=== PATIENT | male | born 1950 | race Asian ===

== ENCOUNTER 2018-04-18 09:51 | Day surgery (SDC) | payer MEDICARE ==
--- NOTE | 2018-04-15 15:05 | HP ---
PREOPERATIVE HISTORY AND PHYSICAL: DATE OF ADMISSION/SURGERY: 04/18/18 [facility] DATE OF OFFICE VISIT: 04/14/18 ATTENDING SURGEON: Dr. Pawan Daley.* (DICTATED BY MARTINE LAKHANI) PROCEDURE: Left shoulder arthroscopic rotator cuff repair, decompression, debridement, subpectoral biceps tenodesis, and excision of distal clavicle. CHIEF COMPLAINT: Left shoulder. HISTORY OF PRESENT ILLNESS: Yovany is a 67-year-old male, who presents to the clinic for left shoulder pain due to a rotator cuff tear, biceps tendinitis and AC joint arthritis. He has failed conservative measures and therefore agreed to undergo a left shoulder arthroscopic rotator cuff repair, decompression, debridement, subpectoral biceps tenodesis, and excision of distal clavicle with Dr. Daley on 04/18/18. PAST MEDICAL HISTORY: Hypertension and heart stent placement. PAST SURGICAL HISTORY: Surgical heart stent placement and right shoulder surgery. The patient denies prior complications with anesthesia. MEDICATIONS: 1. Diclofenac 75 mg 1 by mouth twice a day as needed for pain. 2. Zetia 10 mg 1 by mouth every day. 3. Crestor 40 mg 1 by mouth daily. 4. Lisinopril 20 mg one-half by mouth daily. 5. Aspirin 81 mg 1 tab daily. 6. Rosuvastatin 40 mg 1 daily. ALLERGIES: To CODEINE. FAMILY HISTORY: Unknown. SOCIAL HISTORY: He is a former smoker, quit 4 years ago. He reports occasional alcohol consumption. He denies illegal drug use. REVIEW OF SYSTEMS: A 14-point review of systems was reviewed with the patient. Positive for current complaint, otherwise negative. Denies fever, chills, chest pain, shortness of breath, history of DVT or PE, history of bleeding disorder. PHYSICAL EXAMINATION GENERAL: A 67-year-old, well-developed, well-nourished male, in no acute distress. VITAL SIGNS: Height 68, weight 171, pulse 84, respiratory rate 16, temperature 96.8, O2 sat 97%, BMI 26.0. HEENT: Normocephalic, atraumatic. PERRLA. Throat clear. NECK: Supple. PULMONARY: Lungs are clear to auscultation bilaterally. No wheezing, rhonchi, or rales. CARDIO: Regular rate and rhythm. S1, S2. No murmurs, gallops, or rubs. No edema. ABDOMEN: Positive bowel sounds. Soft, nontender. NEURO: Alert and oriented x3. Cranial nerves grossly intact. MUSCULOSKELETAL: Left upper extremity: Skin is intact. No warmth or erythema. Forward flexion to 150, abduction to 150, external rotation to 70, internal rotation to the thoracic spine. Tenderness to palpation of the AC joint and proximal biceps tendon. Full range of motion of the elbow, wrist, and hand. +2 radial pulse. Sensation intact to light touch distally. Pain and weakness to rotator cuff testing. Positive impingement, Speed, Ho- Sudhir, [place]. DIAGNOSTIC STUDIES: MRI revealed full-thickness tear of the supraspinatus and infraspinatus tendon with 3 cm of retraction, no full-thickness tear of the subscapularis, with biceps tendinopathy and AC joint arthritis. IMPRESSION: Left shoulder rotator cuff tear, acromioclavicular joint arthritis , and biceps tendinitis. PLAN: The patient is scheduled to undergo a left shoulder arthroscopic rotator cuff repair, decompression, debridement, subpectoral biceps tenodesis, and excision of distal clavicle with Dr. Daley on 04/18/18. He will follow up 10 to 14 days postop for followup and suture removal. Percocet will be used for postop pain management and Keflex for antibiotic prophylaxis. MARTINE LAKHANI [id number]/[facility] #: [id number] [facility]ITAL[facility]
[~2018-04-18 09:51] MED LIST: Buffered Lidocaine 1% SYRIN* 1 ML/SYRINGE INTRADERM ONE; Dexamethasone TAB* 4 MG PO ONE; DiMENhydriNATE IV* 50 MG/ML VIAL IV PUSH PRN; Famotidine IV* 10 MG/ML 2 ML (20 mg) IV ONE; Lactated Ringers 1000 ML Bag* 1,000 ML IV SCH; Morphine VIAL* 4 MG/ML VIAL (1 ml vial) IV PRN; Naloxone* 0.4 MG/ML 1 ML VIAL IV PRN; Ondansetron INJ* 2 MG/ML VIAL ONE; PROCHLORPERAZINE INJ 5 MG/ML 2 ML VIAL IV PRN; fentaNYL* 50 MCG/ML 2 ML VIAL (100 MCG VIAL) IV PRN; oxyCODONE/Acetamin 5/325 MG* TAB PO PRN
[2018-04-18] MEDS ORDERED: Ondansetron ODT TAB* 4 MG ONE (10:07)
[2018-04-18] MEDS ORDERED: ceFAZolin 2 GM PREMIX in ORs 2 GM/50 ML BAG IVPB ONE (10:07)
[2018-04-18] MEDS ORDERED: Dexamethasone TAB* 4 MG ONE (10:07)
[2018-04-18] MEDS ORDERED: Famotidine IV* 10 MG/ML 2 ML (20 mg) ONE (10:08)
[2018-04-18] MEDS ORDERED: fentaNYL* 50 MCG/ML 2 ML VIAL (100 MCG VIAL) ONE ×2 (13:10→14:50)
[2018-04-18] MEDS ORDERED: Midazolam* 1 MG/ML 5 ML VIAL (5 MG) ONE (13:10)
[2018-04-18] MEDS ORDERED: KETAMINE HCL* 50 MG/ML 10 ML VIAL ONE (13:10)
[2018-04-18] MEDS ORDERED: Lidocaine 2% PF * 5 ML VIAL ONE (14:47)
[2018-04-18] MEDS ORDERED: Phenylephrine INJ* 10 MG/ML 1 ML VIAL (10 MG) ONE (14:47)
[2018-04-18] MEDS ORDERED: Ketorolac INJ* 30 MG/ML 1 ML VIAL ONE (14:47)
[2018-04-18] MEDS ORDERED: PROCHLORPERAZINE INJ 5 MG/ML 2 ML VIAL ONE (14:47)
[2018-04-18] MEDS ORDERED: Propofol* 10 MG/ML 20 ML BTL ONE (14:47)
[2018-04-18] MEDS ORDERED: Metoprolol Tartrate IV* 1 MG/ML 5 ML VIAL ONE (14:47)
[2018-04-18] MEDS ORDERED: Morphine VIAL* 10 MG/ML 1 ML VIAL ONE (15:51)
[2018-04-18 17:00] VITALS: BP 137/82
--- NOTE | 2018-04-19 02:19 | OP ---
DATE OF OPERATION: 04/18/18 [facility] DATE OF : 48 SURGEON: Pawan Daley MD NEON PUMPER: MARTINE Dyer. An shipping assistant was needed for the entirety of the case to help with position and retraction and was utilized throughout all portions of the case. SECOND NEON PUMPER: JANN Adame ANESTHESIOLOGIST: Dr. Brown. ANESTHESIA: General anesthesia with interscalene block. PRE-OP DIAGNOSES: Left shoulder acute massive tear of the supra and infraspinatus tendon plus bicipital tendinosis, tendinitis, and acromioclavicular joint arthritis. POST-OP DIAGNOSES: Left shoulder acute massive tear of the supra and infraspinatus tendon plus bicipital tendinosis, tendonitis, and acromioclavicular joint arthritis. OPERATIVE PROCEDURE:Left shoulder arthroscopy 1. Extensive glenohumeral debridement. 2. Arthroscopic biceps tenodesis. 3. Decompression with acromioplasty. 4. Distal clavicle excision arthroscopically. 5. Rotator cuff repair of the supra and infraspinatus tendon for a large/ massive tear. INDICATIONS: Yovany Khan is a 67-year-old male, who has had left shoulder pain after he fell on 02/12/18. He has an exquisite pain and difficulty with range of motion. We did an MRI, demonstrated a full-thickness retracted tear. He is very active and we discussed the risks and benefits of surgical versus nonoperative treatment. He has elected to proceed with surgical treatment. Risks and benefits were discussed at length, included but not limited to, bleeding; infection; damage to nerves, vessels, surrounding structures; wound nonhealing; persistent pain; need for further surgery; scarring; stiffness; incomplete relief of symptoms; risk of anesthesia. COMPLICATIONS: None. ESTIMATED BLOOD LOSS: Minimal. DESCRIPTION OF PROCEDURE: The patient was greeted in the preoperative area by the attending surgeon. Correct extremity was marked. Consent was confirmed. The patient underwent interscalene nerve block by the anesthesiologist after which he was brought back to the operating suite. He was placed in the supine position on the operating room table. He then underwent general anesthesia and intubation after which he was placed in the lateral decubitus position. All bony prominences were padded. He was secured with a peg board and axillary roll. The left arm was draped unsterile with 10 pounds of traction. The shoulder was then prepped and draped in the usual sterile fashion beginning with chlorhexidine soap, scrub, and alcohol wipe, and a final prep with ChloraPrep. After appropriate surgical pause indicating site, side, procedure, administration of antibiotics, the standard posterolateral portal was made sharply with an 11 blade. Scope was introduced into the joint. The joint was examined. There were grade 0 changes of the glenohumeral joint, but there was significant synovitis that was present. There was evidence of full-thickness traumatic tear. The biceps was torn at the superior labrum, but the subscap was intact. Again, there was significant synovitis present. The anterior, posterior, and superior labrum were then debrided back using fabio after an anterior portal was made. After the debridement was completed, attention was directed to the subacromial space. With the scope in the subacromial space, the lateral portal was made in an outside- in fashion. Shaver was used to debride back the abundant bursa. The undersurface of the acromion was then skeletonized using electrocautery device. CA ligament was peeled back. A small acromioplasty was then done to remove the anterior, inferior acromial spurs after which the cuff was examined. There was a full-thickness L- shaped type of traumatic tear. The stump was debrided back most anteriorly. The greater tuberosity was then skeletonized and then gently rasped using a rasp, which was a 4-0 oval bur, to gently decorticate the tissues and allow for bony bleeding bed. Cuff tissue was then carefully mobilized. It was first had to be released from adhesions beginning with a blunt probe and then an electrocautery device. The cuff tissue was then carefully mobilized. The tension suture was then placed to help with traction. It was determined that, like I said, this was a very large L- shaped tear involving the supra and infraspinatus tendon. At this point, there was a remnant in the supraspinatus tendon that was still present next to the interval. Decision was made to try a [id number] repair. After the cuff tissue was mobilized, attention was directed to the biceps. The biceps was identified in the groove and through a separate stab incision a 4.75 Helicoil was placed with excellent purchase. The patient had very good bone. The sutures were then passed using k,kka suture passing device with the biceps to make sure it stayed in the appropriate amount of tension. This passed the tendon in a locking whipstitch done arthroscopically. After this was done and then tied down, using arthroscopic knot-tying technique, the biceps was tenotomized proximal to that and the stump was debrided back. Attention was then directed to the rotator cuff repair. Stay suture had been placed with a #2 Ethibond suture and used retraction. At this point, a small [id number]-dawq repair to repair the large L-shaped tear to a small supraspinatus remnant was placed at the base of the split in a simple configuration. This was tied down, this helped to gently bring the cuff closer to the insertion. The stay suture with a traction suture was also used to help facilitate passes. Because the biceps anchor was double loaded, sutures were then passed very anteriorly to allow for capture in the anterior most aspect of the supraspinatus tendon. This was passed through a horizontal mattress configuration and then 2 separate 4.75 Helicoils were also placed through separate stab incisions. The bone quality again was very good. Sutures were then passed in a horizontal mattress configuration. Of course, the placement of these were dependent upon the traction suture to make sure this was placed appropriately. A second lateral portal had to be made for the most optimal passage of suture. Once the sutures were all passed, they were then tied down beginning anteriorly. This helped to reapproximate the cuff to greater tuberosity and the knots were tied. The cuff had been completely reapproximated to the tuberosity. At this point, decision was made to do a double-row repair. Therefore, the sutures in the most anterior aspect of each knot including the biceps were then passed through a Multi- Fix for anterolateral row fixation, placed with excellent purchase. The bone quality was softer laterally. The remaining strands were then passed with the exception of the biceps strand. The remaining 5 strands were then passed through a Multi-Fix for a posterolateral row fixation. This reapproximated the cuff and compressed the footprint. At this point, final images were obtained. Attention was directed to the distal clavicle excision. The row was brought through the anterior portal and there was very stenotic AC joint with an anterior inferior spur. This was debrided back using 4-0 oval bur and then the distal 8 mm of the clavicle was then released including ossified meniscal remnant, was debrided back. All loose debris was removed and final images were obtained. The wounds were then copiously irrigated with sterile saline. Portals were closed with 3-0 nylon in an interrupted fashion. Sterile dressings were applied and a Cryo/Cuff and UltraSling were applied. He was awoken from anesthesia and transferred to PACU in stable condition. POSTOPERATIVE PLAN: He will be discharged on pain medications. DVT prophylaxis considered but deferred due to no previous personal or family history. I will see the patient back in 10 to 14 days. [id number]/[facility] #: [id number] DORA
== END 2018-04-18 17:19 | disposition home or self-care (01) ==
LOC: OREAST 09:51
PROVIDERS: ATTEND Orthopaedic Surgery
DX: S46.012A Strain of muscle(s) and tendon(s) of the rotator cuff of left shoulder, initial encounter (principal); M75.22 Bicipital tendinitis, left shoulder; M19.012 Primary osteoarthritis, left shoulder; I10 Essential (primary) hypertension; Z95.5 Presence of coronary angioplasty implant and graft; Z87.891 Personal history of nicotine dependence; W19.XXXA Unspecified fall, initial encounter; Y92.9 Unspecified place or not applicable; G89.18 Other acute postprocedural pain
CPT/HCPCS: A9270-GY; C1713; J0690; J0780; J1885; J2250; J2270; J2704; J3010; J3490; J8540

== ENCOUNTER 2018-12-20 17:08 | Emergency (ER) | payer MEDICARE ==
[2018-12-20 17:54] VITALS: BP 149/95
--- NOTE | 2018-12-20 18:42 | UC ---
Respiratory Complaint HPI - HPI Summary HPI Summary: Patient is a 67yo male presenting with pain in his left side/ribs x2 weeks. States the pain has worsened over the past few days. States sitting still make the pain better. He was recently treated by his PCP for bronchitis and states those symptoms are slowly resolving but he still has a productive cough. Denies fever and chills. Denies SOB and wheezing. Denies n/v. States ibuprofen and tylenol do not help his pain. Rates the pain 10/10 sharp pain that "makes him want to cry." Patient is concerned for pneumonia and requests something other than ibuprofen for pain. - History of Current Complaint Chief Complaint: UCRespiratory Stated Complaint: RIB PAIN Hx Obtained From: Patient Onset/Duration: Gradual Onset, Lasting Weeks, Worse Since - 3 days ago Severity Initially: Severe Severity Currently: Severe Pain Intensity: 8 Pain Scale Used: 0-10 Numeric Character: Cough: Productive - Allergies/Home Medications Allergies/Adverse Reactions: Allergies Allergy/AdvReac Type Severity Reaction Status Date / Time codeine AdvReac Intermediate Vomiting Verified 12/20/18 17:54 PMH/Surg Hx/FS Hx/Imm Hx Cardiovascular History: Hypertension Other History Of: Anticoagulant Therapy - Surgical History Surgical History: Yes Surgery Procedure, Year, and Place: Appendectomy. Right rotator cuff repair. Cardiac stent placement - 5-6 years ago and then January 2016. cataract bilat - Family History Known Family History: Positive: Non-Contributory Negative: Cardiac Disease, Diabetes Family History: Denies FHx of CVA - Social History Alcohol Use: Occasionally Alcohol Amount: 1-2 glasses of wine per night Substance Use Type: None Smoking Status (MU): Former Smoker Type: Cigarettes Amount Used/How Often: 2 ppd Length of Time of Smoking/Using Tobacco: 51 Have You Smoked in the Last Year: Yes When Did the Patient Quit Smoking/Using Tobacco: 2014 Household Exposure Type: Cigarettes - Immunization History Most Recent Influenza Vaccination: Fall 2015 Most Recent Tetanus Shot: 5-6 years ago Most Recent Pneumonia Vaccination: [facility] Review of Systems All Other Systems Reviewed And Are Negative: Yes Constitutional: Positive: Negative. Negative: Fever, Chills, Fatigue Eyes: Positive: Negative ENT: Negative: Sore Throat, Ear Ache, Nasal Discharge, Sinus Congestion, Sinus Pain/Tenderness Respiratory: Positive: Cough. Negative: Shortness Of Breath Cardiovascular: Positive: Negative Gastrointestinal: Positive: Negative Musculoskeletal: Positive: Other: - pain in left ribs Neurological: Negative: Headache Physical Exam Triage Information Reviewed: Yes Appearance: Well-Appearing, No Pain Distress, Well-Nourished Vital Signs: Initial Vital Signs Temp 97.9 F 12/20/18 17:50 Pulse 96 12/20/18 17:50 Resp 18 12/20/18 17:50 BP 149/95 12/20/18 17:50 Pulse Ox 97 12/20/18 17:50 Vital Signs Reviewed: Yes Eyes: Positive: Conjunctiva Clear ENT: Positive: Hearing grossly normal Neck exam: Normal Neck: Positive: Supple, Nontender Respiratory Exam: Normal Respiratory: Positive: Lungs clear, Normal breath sounds, No respiratory distress, No accessory muscle use. Negative: Crackles, Rhonchi, Stridor, Wheezing, Plerual rub Cardiovascular Exam: Normal Cardiovascular: Positive: RRR. Negative: Tachycardia Musculoskeletal: Positive: No Edema, Other: - tenderness to palpation of left lateral lower ribs Neurological: Positive: Alert, Muscle Tone Normal Psychological: Positive: Age Appropriate Behavior - no ecchymosis Skin: Positive: Other - no ecchymosis noted Diagnostics - Radiology chest xray Radiology Interpretation Completed By: ED Physician Summary of Radiographic Findings: no fracture. no pneumonia. reviewed with Dr. Howell Respiratory Course/Dx - Course Course Of Treatment: Discussed patient and xray findings with Dr. Howell. Discussed negative xray findings with patient and that the final report will be obtained tomorrow. I treated the patient with one dose of prednisone here and sent him home with a prescription of prednisone to treat inflammation from bronchitis and/or a muscle strain. I also prescribed the patient lidocaine gel to further alleviate his rib pain. Instructed to use OTC analgesics as well as directed for pain relief. If symptoms persist, patient instructed to follow up with PCP. Patient instructed to go to the emergency department if he experiences worsening pain, difficulty breathing, fever, or coughing up blood. Patient voiced understanding and agreed to treatment plan. - Differential Dx/Diagnosis Differential Diagnosis/HQI/PQRI: Other - muscle strain Provider Diagnosis: Rib pain on left side Discharge ED - Sign-Out/Discharge Documenting (check all that apply): Patient Departure All imaging exams completed and their final reports reviewed: No - Discharge Plan Condition: Stable Disposition: HOME Prescriptions: Lidocaine 4% GEL* [Topicaine 4% GEL*] 1 applic TOPICAL SEE INSTRUCTIONS PRN #1 tube PRN Reason: Pain - Moderate predniSONE TAB* [Deltasone 10 MG TAB*] 10 mg PO DAILY #5 tab Patient Education Materials: Prednisone (By mouth), Muscle Strain (ED) Referrals: Fish Garcia MD [Primary Care Provider] - 7 Days Additional Instructions: As discussed, the initial read of your xrays did not show any evidence of pneumonia or fractures. The final xray report will be obtained tomorrow and you will be notified of any abnormal results. Take prednisone as prescribed to help alleviate your pain and inflammation. Use the lidocaine gel as prescribed for pain relief. You may continue to use over the counter pain medications as directed for pain relief. Refrain from strenuous activity that worsens your pain until pain has fully resolved. If symptoms persist, follow up with your primary care physician. Go to the emergency department if you experience worsening pain, difficulty breathing, fever, or you cough up blood. - Billing Disposition and Condition Condition: STABLE Disposition: Home - Attestation Statements Provider Attestation: . I did not personally evaluate, interact with , or disposition this patient. I reveiwed his chart and XRs
[2018-12-20] MEDS ORDERED: predniSONE TAB* 10 MG PO ONE (19:15)
--- NOTE | 2018-12-21 14:25 | UC ---
- Progress Note Progress Note: Radiology report reviewed. No active cardiopulmonary disease is noted. No change in mgmt. Course/Dx - Diagnoses Provider Diagnoses: Rib pain on left side Discharge ED - Sign-Out/Discharge Documenting (check all that apply): Post-Discharge Follow Up All imaging exams completed and their final reports reviewed: Yes - Discharge Plan Condition: Stable Disposition: HOME Prescriptions: Lidocaine 4% GEL* [Topicaine 4% GEL*] 1 applic TOPICAL SEE INSTRUCTIONS PRN #1 tube PRN Reason: Pain - Moderate predniSONE TAB* [Deltasone 10 MG TAB*] 10 mg PO DAILY #5 tab Patient Education Materials: Prednisone (By mouth), Muscle Strain (ED) Referrals: Fish Garcia MD [Primary Care Provider] - 7 Days Additional Instructions: As discussed, the initial read of your xrays did not show any evidence of pneumonia or fractures. The final xray report will be obtained tomorrow and you will be notified of any abnormal results. Take prednisone as prescribed to help alleviate your pain and inflammation. Use the lidocaine gel as prescribed for pain relief. You may continue to use over the counter pain medications as directed for pain relief. Refrain from strenuous activity that worsens your pain until pain has fully resolved. If symptoms persist, follow up with your primary care physician. Go to the emergency department if you experience worsening pain, difficulty breathing, fever, or you cough up blood. - Billing Disposition and Condition Condition: STABLE Disposition: Home
== END 2018-12-20 19:35 | disposition home or self-care (01) ==
LOC: UCEAST 17:08
DX: R07.81 Pleurodynia (principal); I10 Essential (primary) hypertension; Z79.01 Long term (current) use of anticoagulants; Z88.5 Allergy status to narcotic agent; Z87.891 Personal history of nicotine dependence
CPT/HCPCS: 71046; 99212; G0463; J7512